=== PATIENT | male | born 1965 | race Caucasian/White ===

== ENCOUNTER 2021-06-08 22:02 | Emergency (ER) | payer SELFPAY ==
[~2021-06-08] VITALS: Ht 177.8 cm; Wt 85.0 kg
[2021-06-08] MEDS ORDERED: NITROGLYCERIN 0.4MG TABLET SL SL PRN (23:00)
[2021-06-08] MEDS ORDERED: ASPIRIN 81MG TABLET PO ONE (23:00)
[2021-06-08 23:27] LABS: CHLORIDE 107 mEq/L (98-107)
[2021-06-08 23:36] LABS: EOSINOPHILS % 2.8 % (0.0-5.0); HEMATOCRIT. 47.3 % (42.0-52.0); HEMOGLOBIN. 16.4 g/dL (14.0-18.0); LYMPHOCYTES % 33.8 % (20.0-50.0); MEAN CORPUSCULAR HEMOGLOBIN 31.7 pg (28.0-32.0); MEAN CORPUSCULAR VOLUME 91.6 fL (80.0-94.0); MEAN PLATELET VOLUME 7.9 fl (7.4-10.4); MONOCYTES % 12.2 % (2.0-8.0); NEUTROPHILS % 50.2 % (40.0-76.0); PLATELET 195 x1000/uL (130-400); RED BLOOD CELL COUNT 5.16 mill/uL (4.7-6.1)
[2021-06-09 01:40] VITALS: BP 194/122
== END 2021-06-09 01:40 | disposition home or self-care (01) ==
LOC: ER 22:02
DX: R07.89 Other chest pain (principal); E78.00 Pure hypercholesterolemia, unspecified; I10 Essential (primary) hypertension; Z98.890 Other specified postprocedural states
CPT/HCPCS: 36415; 71045; 80053; 83880; 84484; 85025; 93005; 99285

== ENCOUNTER 2024-06-02 20:48 | Emergency (ER) | payer SELFPAY ==
[~2024-06-02] VITALS: Ht 177.8 cm; Wt 83.0 kg
[2024-06-02 21:02] VITALS: O2SAT 98
[2024-06-02 21:31] VITALS: TEMP 98.1; O2SAT 98
[2024-06-03 00:48] LABS: CLARITY URINE CLEAR (CLEAR); COLOR URINE YELLOW (YELLOW); GLUCOSE URINE NEGATIVE (NEGATIVE); KETONES URINE NEGATIVE (NEGATIVE); NITRITE URINE NEGATIVE (NEGATIVE); OCCULT BLOOD URINE NEGATIVE (NEGATIVE); PH URINE 5.5 (4.5-8.0); PROTEIN URINE NEGATIVE (NEGATIVE); SPECIFIC GRAVITY URINE 1.016 (1.005-1.030)
[2024-06-03 00:49] LABS: LEUKOCYTE ESTERASE URINE NEGATIVE (NEGATIVE); UROBILINOGEN URINE 0.2 E.U./dL (0.2-1.0)
[2024-06-03 01:30] VITALS: BP 168/108; PULSE 63; RESP 16
[2024-06-03] MEDS: IBUPROFEN 600MG TABLET PO ONE (01:30)
[2024-06-03 01:50] LABS: BASOPHILS % 0.7 % (0.0-2.0); EOSINOPHILS % 2.3 % (0.0-5.0); HEMATOCRIT. 45.2 % (42.0-52.0); HEMOGLOBIN. 15.7 g/dL (14.0-18.0); LYMPHOCYTES % 35.6 % (20.0-50.0); MEAN CORPUSCULAR HEMOGLOBIN 32.7 pg (28.0-32.0); MEAN CORPUSCULAR HGB CONC 34.8 g/dL (31.0-37.0); MEAN PLATELET VOLUME 7.7 fl (7.4-10.4); MONOCYTES % 9.5 % (2.0-8.0); NEUTROPHILS % 51.9 % (40.0-76.0); PLATELET 208 x1000/uL (130-400); RED BLOOD CELL COUNT 4.81 mill/uL (4.7-6.1); RED CELL DISTRIBUTION WIDTH 13.3 % (11.6-14.6); WHITE BLOOD COUNT 7.9 x1000/uL (4.5-11.0)
[2024-06-03 01:58] LABS: CHLORIDE 107 mEq/L (98-107); POTASSIUM 3.9 mEq/L (3.5-5.1); SODIUM 140 mEq/L (136-145)
[2024-06-03 01:59] LABS: CARBON DIOXIDE 24 mEq/L (21-32)
[2024-06-03 02:00] LABS: CALCIUM 9.9 mg/dL (8.7-10.4)
[2024-06-03 02:04] LABS: GLUCOSE 110 mg/dL (70-105)
[2024-06-03 02:05] LABS: UREA NITROGEN BLOOD 16 mg/dL (9-23)
[2024-06-03 02:06] LABS: ALANINE AMINOTRANSFERASE 30 IU/L (10-49); ALBUMIN 4.4 g/dL (3.2-4.8); ASPARTATE AMINOTRANSFERASE 24 IU/L (<34)
[2024-06-03 02:07] LABS: BILIRUBIN TOTAL 0.4 mg/dL (0.1-1.0); PROTEIN TOTAL 7.1 g/dL (6.0-8.3)
[2024-06-03] MEDS ORDERED: IBUP-2029 MT (04:21)
== END 2024-06-03 04:30 | disposition home or self-care (01) ==
LOC: ER 20:48
DX: R30.0 Dysuria (principal); N50.82 Scrotal pain; E78.00 Pure hypercholesterolemia, unspecified; I10 Essential (primary) hypertension; Z90.49 Acquired absence of other specified parts of digestive tract
CPT/HCPCS: 36415; 74176; 76870; 80053; 81003; 85025; 93976; 99284